=== PATIENT | female | born 1990 | race African-American/Black ===

== ENCOUNTER 2017-12-24 11:17 | Emergency (ER) | payer OTHER ==
[~2017-12-24] VITALS: Ht 167.6 cm; Wt 56.7 kg
[2017-12-24 11:30] VITALS: Ht 167.6 cm; Wt 56.7 kg
[2017-12-24 12:25] VITALS: BP 123/79
== END 2017-12-24 12:25 | disposition home or self-care (01) ==
LOC: ED 11:17
DX: J02.9 Acute pharyngitis, unspecified (principal); J06.9 Acute upper respiratory infection, unspecified

== ENCOUNTER 2018-01-10 10:54 | Emergency (ER) | payer OTHER ==
[~2018-01-10] VITALS: Ht 165.1 cm; Wt 58.0 kg
[2018-01-10 10:58] VITALS: Ht 165.1 cm; Wt 58.0 kg
[2018-01-10 11:34] VITALS: BP 121/86
[2018-01-11 10:19] LABS: RAPID PLASMA REAGIN Non Reactive (Non Reactive)
== END 2018-01-10 12:07 | disposition home or self-care (01) ==
LOC: ED 10:54
PROVIDERS: Emergency Medicine
DX: Z20.2 Contact with and (suspected) exposure to infections with a predominantly sexual mode of transmission (principal); F12.10 Cannabis abuse, uncomplicated
CPT/HCPCS: 87491; 87591; J0696